=== PATIENT | female | born 1960 | race Caucasian/White ===

== ENCOUNTER 2019-07-12 00:26 | Emergency (ER) | payer OTHER ==
[~2019-07-12] VITALS: Ht 152.4 cm; Wt 67.1 kg
[2019-07-12] MEDS ORDERED: HYDROcodone-ACET 10/325MG TAB ONE (00:35)
[2019-07-12 00:41] VITALS: BP 187/101
[2019-07-12] MEDS ORDERED: HYDROcodone-ACET 10/325MG TAB PO ONE (00:45)
== END 2019-07-12 03:33 | disposition home or self-care (01) ==
LOC: EDBD 00:26 → ER 00:35
DX: S16.1XXA Strain of muscle, fascia and tendon at neck level, initial encounter (principal); S09.90XA Unspecified injury of head, initial encounter; I10 Essential (primary) hypertension; W19.XXXA Unspecified fall, initial encounter; Y93.89 Activity, other specified; Y92.89 Other specified places as the place of occurrence of the external cause; Y99.8 Other external cause status
CPT/HCPCS: 70450; 72125; 93005

== ENCOUNTER 2019-10-05 17:17 | Emergency (ER) | payer OTHER ==
[~2019-10-05] VITALS: Ht 152.4 cm; Wt 70.8 kg
[2019-10-05 18:41] VITALS: BP 92/62
[2019-10-05] MEDS ORDERED: HYDROcodone-ACET 5/325MG TAB PO ONE (20:00)
== END 2019-10-05 20:51 | disposition home or self-care (01) ==
LOC: ER 17:17
DX: S20.212A Contusion of left front wall of thorax, initial encounter (principal); M75.52 Bursitis of left shoulder; X58.XXXA Exposure to other specified factors, initial encounter; Y93.89 Activity, other specified; Y92.89 Other specified places as the place of occurrence of the external cause; Y99.8 Other external cause status
CPT/HCPCS: 71250; 73030